=== PATIENT | male | born 1950 ===

== ENCOUNTER 2016-11-21 12:56 | Day surgery (SDC) | payer OTHER ==
[~2016-11-21] VITALS: Ht 185.4 cm; Wt 106.6 kg
[2016-11-21 14:06] VITALS: BP 154/96; PULSE 67; TEMP 98.2
[2016-11-21] MEDS ORDERED: LASIX 20MG TABL20 MG PO (14:13)
[2016-11-21] MEDS ORDERED: GLUCOSE4 G1 PO (14:14)
[2016-11-21] MEDS ORDERED: VENOFER IV (14:15)
[2016-11-21] MEDS ORDERED: NORCO 325 MG-101 TAB PO (14:15)
[2016-11-21] MEDS ORDERED: COREG 6.256.25 MG/TA PO (14:16)
[2016-11-21] MEDS ORDERED: AMITRIPTYLINE H25 M1 PO (14:16)
[2016-11-21] MEDS ORDERED: NOVOLOG FLEX100 U/ML SQ (14:17)
[2016-11-21] MEDS ORDERED: LANTUS100 U/ML SQ (14:18)
[2016-11-21] MEDS ORDERED: GLUCOPHAGE850 MG/TAB PO (14:19)
[2016-11-21] MEDS ORDERED: PRINIVIL5 MG PO (14:19)
[2016-11-21] MEDS ORDERED: ZOCOR 80MG80 MG PO (14:21)
[2016-11-21 15:42] VITALS: BP 164/84; PULSE 70; TEMP 98.2
[2016-11-21 15:57] VITALS: BP 150/93; PULSE 77
[2016-11-21 16:12] VITALS: BP 138/76; PULSE 78
[2016-11-21 16:32] VITALS: BP 161/87; PULSE 67
== END 2016-11-21 16:30 | disposition home or self-care (01) ==
LOC: SDCO 12:56
DX: K55.20 Angiodysplasia of colon without hemorrhage (principal); K57.30 Diverticulosis of large intestine without perforation or abscess without bleeding; K29.70 Gastritis, unspecified, without bleeding; D50.9 Iron deficiency anemia, unspecified; K92.1 Melena; E11.9 Type 2 diabetes mellitus without complications; E66.9 Obesity, unspecified; Z80.0 Family history of malignant neoplasm of digestive organs; Z86.010 Personal history of colon polyps; Z94.84 Stem cells transplant status; Z92.3 Personal history of irradiation; Z85.72 Personal history of non-Hodgkin lymphomas; Z87.891 Personal history of nicotine dependence
CPT/HCPCS: J2250; J2405; J3010; J7030

== ENCOUNTER 2021-08-30 05:57 | Day surgery (SDC) | payer OTHER ==
[2021-08-30] VITALS (12 sets, daily range): BP systolic 96–150; BP diastolic 53–109; PULSE 72–83; TEMP 97.9
[~2021-08-30] VITALS: Ht 185.6 cm; Wt 99.7 kg
[~2021-08-30 05:57] MED LIST: AMITRIPTYLINE H25 M1 PO; COREG 6.256.25 MG/TA PO; GLUCOPHAGE850 MG/TAB PO; GLUCOSE4 G1 PO; LASIX 20MG TABL20 MG PO; LEVEMIR FLEX100 U/ML SQ; NORCO 325 MG-7.1 TAB PO; NOVOLOG FLEX100 U/ML SQ; PRINIVIL20 MG PO; VENOFER IV; ZOCOR 80MG80 MG PO
[2021-08-30 06:52] LABS: HEMATOCRIT 41.3 % (42.0-52.0); HEMOGLOBIN 13.4 g/dl (13.5-18.0); MEAN CELL VOLUME 90 fl (80.0-100.0); MEAN CORPUSCULAR HEMOGLOBIN 29 pg (27-31); MEAN CORPUSCULAR HGB CONC 32 g/dl (33.0-37.0); MEAN PLATELET VOLUME 10.3 fl (7.4-10.4); PLATELET COUNT 141 K/mm3 (130-400); RED BLOOD COUNT 4.61 M/mm3 (4.20-5.60)
[2021-08-30 07:09] LABS: CALCIUM 8.8 mg/dL (8.4-10.2); CREATININE, serum 1.41 mg/dL (0.72-1.25); POTASSIUM 4.1 mmol/L (3.5-4.5)
[2021-08-30 07:14] LABS: INR 1.1 (0.8-3.0); PROTHROMBIN TIME 12.4 SECONDS (9.7-12.8)
[2021-08-30 07:17] LABS: PARTIAL THROMBOPLASTIN TIME 33.2 SECONDS (26.0-37.0)
[2021-08-30] MEDS ORDERED: TYLENOL 325MG325 MG PO (07:46)
[2021-08-30] MEDS ORDERED: VITAMIN C500 MG PO (07:46)
[2021-08-30] MEDS ORDERED: ASPIRIN 81M81 MG/TA2 PO (07:49)
[2021-08-30] MEDS ORDERED: COREG 6.256.25 MG/TA PO (07:50)
[2021-08-30] MEDS ORDERED: VITAMIN D 400400 IU PO (07:51)
[2021-08-30] MEDS ORDERED: [UNRECOGNIZED DRUG - OTHER] PO (07:54)
[2021-08-30] MEDS ORDERED: VOLTAREN GEL 1%1 TU TP (07:55)
[2021-08-30] MEDS ORDERED: JARDIANCE25 PO (07:55)
[2021-08-30] MEDS ORDERED: VITAMIN D 50,1.25 MG PO (07:56)
[2021-08-30] MEDS ORDERED: FERROUS SU325 MG/TAB PO (07:57)
[2021-08-30] MEDS ORDERED: EPA FISH OIL1 SGL PO (08:03)
[2021-08-30] MEDS ORDERED: PRESERVISIONLUT PO (08:09)
[2021-08-30] MEDS ORDERED: NARCAN4 MG NS (08:10)
[2021-08-30] MEDS ORDERED: CRESTOR40 MG PO (08:13)
[2021-08-30] MEDS ORDERED: FLOMAX 0.40.4 MG/CAP PO (08:14)
[2021-08-30] MEDS ORDERED: SANCTURA20 MG PO (08:15)
[2021-08-30] MEDS ORDERED: CYMBALTA 30MG30 MG PO (08:17)
[2021-08-30] MEDS ORDERED: WEGOVY1 MG/0.5 M SQ (08:18)
--- NOTE | 2021-08-30 10:04 | NUR ---
Pt to procedure at this time.
--- NOTE | 2021-08-30 10:19 | NUR ---
PATIENT ALERT AND ORIENTED, NO REPORTS OF CHEST PAIN. SEE MERGE FOR DETAILS ABOUT CASE INCLUDING MEDICATION ADMINISTRATION WELL HEMODYNAMIC MONITORING. PATIENT VERBALIZES UNDERSTANDING PROCEDURE.
--- NOTE | 2021-08-30 14:47 | NUR ---
Discharge instructions given to pt.Pt verbalizes understanding.INT removed,catheter tip intact.Right radial site is observed clean,dry,intact,and soft to touch.Pt escorted out via wheelchair by this nurse.
== END 2021-08-30 15:43 ==
LOC: COL.CAR 05:57 → EU 06:00 → COL.CAR 07:30
PROVIDERS: Internal Medicine Cardiovascular Disease
DX: R06.02 Shortness of breath (principal); E11.9 Type 2 diabetes mellitus without complications; I10 Essential (primary) hypertension; E78.2 Mixed hyperlipidemia; I44.7 Left bundle-branch block, unspecified; I48.92 Unspecified atrial flutter; I49.3 Ventricular premature depolarization; I47.2 Ventricular tachycardia; I77.819 Aortic ectasia, unspecified site; I45.89 Other specified conduction disorders; Z79.4 Long term (current) use of insulin; Z79.82 Long term (current) use of aspirin; Z79.899 Other long term (current) drug therapy; Z79.84 Long term (current) use of oral hypoglycemic drugs; Z87.891 Personal history of nicotine dependence
CPT/HCPCS: OP; J1644; J2250; J3010; J7040

== ENCOUNTER 2022-01-31 08:02 | Day surgery (SDC) | payer OTHER ==
[2022-01-31] VITALS (10 sets, daily range): BP systolic 127–167; BP diastolic 46–94; PULSE 70–110; TEMP 97.9–99
[~2022-01-31] VITALS: Ht 185.4 cm; Wt 100.3 kg
[~2022-01-31 08:02] MED LIST changes: +ASPIRIN 81M81 MG/TA2 PO; +CRESTOR40 MG PO; +CYMBALTA 30MG30 MG PO; +EPA FISH OIL1 SGL PO; +FERROUS SU325 MG/TAB PO; +FLOMAX 0.40.4 MG/CAP PO; +JARDIANCE25 PO; +NARCAN4 MG NS; +PRESERVISIONLUT PO; +SANCTURA20 MG PO; +TYLENOL 325MG325 MG PO; +VITAMIN C500 MG PO; +VITAMIN D 400400 IU PO; +VITAMIN D 50,1.25 MG PO; +VOLTAREN GEL 1%1 TU TP; +WEGOVY1 MG/0.5 M SQ; +[UNRECOGNIZED DRUG - OTHER] PO
[2022-01-31] MEDS ORDERED: PROAIR HFA0.09 MG/AC IH (09:54)
[2022-01-31] MEDS ORDERED: SANCTURA20 MG PO (09:55)
[2022-01-31] MEDS ORDERED: VITAMIN D31000 I1 PO (09:55)
[2022-01-31] MEDS ORDERED: SPIRIVA RE2.5 MCG/Ac IH (09:56)
--- NOTE | 2022-01-31 10:37 | NUR ---
0910 - PT arrives for procedure, A&Ox4 and was admitted to [facility]6 via ambulation w/o assistive devices. Height and weight obtained. Monitors applied and vitals obtained; PT denies current pain. Procedure verified and consent signed by PT. Physical assessment completed. PT brought medication list, last dose was reviewed. PT voided prior to changing into gown, warm blankets provided and non-slip socks are on. PT oriented to room and call reynolds, within reach. Privacy password and Inpatient number reviewed w/ PT. Lights dimmed per PT request for comfort. Side rails x1. Blood sugar obtained from IV start. IV medications administered.
--- NOTE | 2022-01-31 12:37 | NUR ---
1230 - Verbal orders recieved for CX. RN contacted Radiology. 1235 - Radiology obtained CX.
--- NOTE | 2022-01-31 16:27 | NUR ---
PT TO ROOM 331 PER BED WITH REPORT FROM [facility] @5830. PT IS A/O X3 VSS, LUNGS CTA, CREPITICE NOTED TO RIGHT SHOULDER/NECK. SIX ABDOMINAL INCISIONS WITH EXOFEN [place] SET BRETT. SCDS PLACED BILATERALLY. IV TO LFA. PT RESTING IN BED.
[2022-02-01 05:19] VITALS: BP 160/76; PULSE 92; TEMP 99
--- NOTE | 2022-02-01 06:26 | NUR ---
SHIFT NOTE: PATIENT RESTED QUIETLY THIS SHIFT. PATIENT PASSING COPIUS AMOUNTS OF GAS REPORTED BY PATIENT AND PATIENT REPORTED REDUCTION IN PAIN. PATIENT GIVEN PRN TYLENOL ONCE AND PRN OXYCODONE X1 AND REPORTED EFFECTIVENESS.
[2022-02-01 08:25] VITALS: BP 136/69; PULSE 92; TEMP 98.1
--- NOTE | 2022-02-01 08:30 | NUR ---
Pt. sitting up in bed. Pt. is A&OX3, assessment complete. INT to lt. forearm patent. Pt. reports pain at a 5 on pain scale, will give pain meds per orders. Abd incisions well approximated. Pt. denies further needs.
--- NOTE | 2022-02-01 09:50 | NUR ---
Initial visit; Patient sitting up having breakfast. Bilingual Administrative Assistant introduced herself and offered Spiritual Care. Patient states he has been treated well and could ask for nothing better. He is doing well and will be discharged soon. He thanked Bilingual Administrative Assistant for visit.
--- NOTE | 2022-02-01 11:00 | NUR ---
Pt. ready to discharge. Reviewed follow ups, discharge instructions, home med rec, and education. Pt. voices understanding. INT to lt. forearm discontinued. Pt. escorted out by wheelchair.
== END 2022-02-01 11:30 | disposition home or self-care (01) ==
LOC: SDCO 08:02 → SURG 16:25 → SDCO 02-01 11:30
DX: K44.9 Diaphragmatic hernia without obstruction or gangrene (principal); E11.9 Type 2 diabetes mellitus without complications; J43.9 Emphysema, unspecified; Z79.4 Long term (current) use of insulin; Z87.891 Personal history of nicotine dependence; Z79.899 Other long term (current) drug therapy
CPT/HCPCS: OP; A9270; J0330; J1170; J1815; J2405; J2704; J2765; J3010; J7030